=== PATIENT | female | born 1980 | race Caucasian/White ===

== ENCOUNTER 2018-02-05 10:31 | Emergency (ER) | payer MEDICAID ==
[~2018-02-05] VITALS: Ht 162.6 cm; Wt 117.9 kg
[2018-02-05 11:38] VITALS: BP 152/78
[2018-02-05] MEDS ORDERED: MEPERIDINE HCL (50 MG/ML) 1 ML VIAL IM ONE (12:30)
[2018-02-05] MEDS ORDERED: PROMETHAZINE HCL 25 MG/ML 1ML IM ONE (12:30)
== END 2018-02-05 13:11 | disposition home or self-care (01) ==
LOC: ER 10:31
DX: M54.5 Low back pain (principal); G89.29 Other chronic pain; F17.210 Nicotine dependence, cigarettes, uncomplicated; Z88.8 Allergy status to other drugs, medicaments and biological substances; Z88.1 Allergy status to other antibiotic agents
CPT/HCPCS: 96372; 99283; J2175; J2550

== ENCOUNTER 2018-10-25 11:05 | Emergency (ER) | payer MEDICAID ==
[~2018-10-25] VITALS: Ht 162.6 cm; Wt 127.0 kg
[2018-10-25 11:18] VITALS: BP 131/91
[2018-10-25] MEDS ORDERED: KETOROLAC TROMETH 60MG/2ML VIAL IM ONE (12:45)
== END 2018-10-25 13:38 | disposition home or self-care (01) ==
LOC: ER 11:05
DX: G43.909 Migraine, unspecified, not intractable, without status migrainosus (principal); F17.210 Nicotine dependence, cigarettes, uncomplicated; F12.10 Cannabis abuse, uncomplicated; E78.5 Hyperlipidemia, unspecified; I10 Essential (primary) hypertension
CPT/HCPCS: 70450; 96372; 99284; J1885